=== PATIENT | female | born 1955 | race Caucasian/White ===

== ENCOUNTER 2021-03-18 01:21 | Emergency (ER) | payer MEDICARE ==
[2021-03-18] MEDS ORDERED: Ondansetron 4 MG Tab.DIS PO ONE (01:42)
[2021-03-18] MEDS ORDERED: Sodium Chloride 0.9% 1,000 ML IV ONE (01:42)
[2021-03-18] MEDS ORDERED: LORazepam 0.5 MG Tab PO ONE (02:59)
--- NOTE | 2021-03-18 03:06 | EDM.PDOC ---
ED HPI GENERAL MEDICAL PROBLEM - General Chief Complaint: General Stated Complaint: FEELS DEHYDRATED Time Seen by Provider: 03/18/21 02:00 - History of Present Illness INITIAL COMMENTS - FREE TEXT/NARRATIVE: Mouth feels very dry for a few hours. She became nauseated once and forced herself to vomit. She has not been sick. She did have a few beers last evening. - Related Data Allergies Allergy/AdvReac Type Severity Reaction Status Date / Time hydrocodone Allergy Itching Verified 03/18/21 02:14 oxycodone Allergy Itching Verified 03/18/21 02:14 Past Medical History HEENT History: Reports: Impaired Vision Cardiovascular History: Reports: Hypertension Respiratory History: Reports: Asthma Other Respiratory History: Rescue inhaler used 10 times in last 30 days [employer] History: Reports: - Past Surgical History HEENT Surgical History: Reports: None Cardiovascular Surgical History: Reports: None Respiratory Surgical History: Reports: None Social & Family History - Tobacco Use Tobacco Use Status *Q: Light Tobacco User Years of Tobacco use: 30 Packs/Tins Daily: 0 Used Tobacco, but Quit: No Second Hand Smoke Exposure: No - Caffeine Use Caffeine Use: Reports: Coffee Other Caffeine Use: 3 cups coffee daily - Alcohol Use Days Per Week of Alcohol Use: 1 Number of Drinks Per Day: 1 Total Drinks Per Week: 1 Date of Last Drink: 03/18/21 Time of Last Drink: 22:30 - Recreational Drug Use Recreational Drug Use: No ED ROS GENERAL - Review of Systems Review Of Systems: Comprehensive ROS is negative, except as noted in HPI. Endocrine: Reports: Other (very thristy.) ED EXAM, GENERAL - Physical Exam Exam: See Below GI/Abdominal: Other (discomfort in the ULQ. pt states this is not new.) Course - Vital Signs Last Recorded V/S: Last Vital Signs Temp 98.1 F 03/18/21 01:30 Pulse 92 03/18/21 01:30 Resp 20 03/18/21 01:30 BP 148/81 H 03/18/21 01:30 Pulse Ox 97 03/18/21 01:30 - Orders/Labs/Meds Labs: Laboratory Tests 03/18/21 03/18/21 03/18/21 Range/Units 02:00 02:10 02:15 WBC 8.2 (4.0-11.0) K/uL RBC 4.11 (3.80-5.80) M/uL Hgb 12.2 (11.5-16.5) g/dL Hct 35.4 L (37.0-47.0) % MCV 86 (76-96) fL MCH 29.7 (27.0-32.0) pg MCHC 34.5 (31.0-35.0) g/dL RDW 12.4 (11.0-16.0) % Plt Count 358 (150-500) K/uL MPV 9.4 (6.0-10.0) fL Neut % (Auto) 64.8 (45.0-70.0) % Lymph % (Auto) 22.4 (20.0-40.0) % [place] % (Auto) 7.8 (3.0-10.0) % Eos % (Auto) 4.3 (1.0-5.0) % Baso % (Auto) 0.7 H (0.0-0.5) % Neut # (Auto) 5.28 (2.00-7.50) K/uL Lymph # (Auto) 1.83 (1.50-4.00) K/uL [place] # (Auto) 0.64 (0.20-0.80) K/uL Eos # (Auto) 0.35 (0.04-0.40) K/uL Baso # (Auto) 0.06 (0.02-0.10) K/uL Sodium 121 L (136-145) mmol/L Potassium 3.8 (3.5-5.1) mmol/L Chloride 90 L (98-107) mmol/L Carbon Dioxide 25.7 (21.0-32.0) mmol/L Anion Gap 9.1 (5.0-15.0) mmol/L BUN 6 L (8-26) mg/dL Creatinine 0.61 (0.55-1.02) mg/dL Est Cr Clr Drug Dosing TNP Estimated GFR (MDRD) > 60 (>60) MLS/MIN BUN/Creatinine Ratio 9.8 (6-25) Glucose 106 H (74-100) mg/dL Calcium 7.9 L (8.5-10.1) mg/dL Total Bilirubin 0.2 (0.0-1.0) mg/dL AST 24 (15-37) U/L ALT 21 (12-78) U/L Alkaline Phosphatase 157 H (46-116) U/L Total Protein 7.6 (6.4-8.2) g/dL Albumin 3.9 (3.4-5.0) g/dL Globulin 3.7 (2.2-4.2) g/dL Albumin/Globulin Ratio 1.1 (0.8-2.0) TSH, Ultra Sensitive 1.553 (0.358-3.740) uIU/mL Urine Color Yellow Urine Appearance Clear (CLEAR) Urine pH 7.0 (5.0-8.0) Ur Specific [place] 1.020 (1.003-1.030) Urine Protein Negative (NEGATIVE) mg/dL Urine Glucose (UA) Negative (NEGATIVE) mg/dL Urine Ketones Negative (NEGATIVE) mg/dL Urine Occult Blood Trace-lysed H (NEGATIVE) Urine Nitrite Negative (NEGATIVE) Urine Bilirubin Negative (NEGATIVE) Urine Urobilinogen 0.2 (0.2-1.0) E.U./dL Ur Leukocyte Esterase Negative (NEGATIVE) Urine RBC 0-5 H /HPF Urine WBC Not Reportable Ur Epithelial Cells Few /HPF Urine Bacteria Few /HPF Meds: Medications Discontinued Medications Generic Name Dose Route Start Last Admin Trade Name Freq PRN Reason Stop Dose Admin Sodium Chloride 1,000 mls @ 999 mls/hr 03/18/21 01:42 03/18/21 01:50 Normal Saline IV 03/18/21 02:42 999 mls/hr .BOLUS ONE Administration Lorazepam 0.5 mg 03/18/21 02:59 Lorazepam 0.5 Mg Tab PO 03/18/21 03:00 ONETIME ONE Ondansetron HCl 4 mg 03/18/21 01:42 03/18/21 01:40 Ondansetron 4 Mg Tab.Dis PO 03/18/21 01:43 4 mg ONETIME ONE Administration - Re-Assessments/Exams Free Text/Narrative Re-Assessment/Exam: 03/18/21 03:04 Labs show her Na level is low at 121. Zofran was given x 1. Normal saline 1 liter was given. Pt still seems anxious. Denies alcohol abuse. Ativan 0.5 mg given x 1 dose. Encouraged to add salt to her food. Follow up with her PCP next week. Departure - Departure Time of Disposition: 03:00 Disposition: Home, Self-Care 01 Condition: Good Clinical Impression: Hyponatremia, Anxiety - Discharge Information *PRESCRIPTION DRUG MONITORING PROGRAM REVIEWED*: Not Applicable *COPY OF PRESCRIPTION DRUG MONITORING REPORT IN PATIENT LEA: Not Applicable Additional Instructions: Add salt to food. Limit alcohol use. Follow up with Primary provider next week. Sepsis Event Note (ED) - Evaluation Sepsis Screening Result: No Definite Risk - Focused Exam Vital Signs: Vital Signs Temp Pulse Resp BP Pulse Ox 03/18/21 01:30 98.1 F 92 20 148/81 H 97
== END 2021-03-18 03:04 | disposition home or self-care (01) ==
LOC: LB.ED 01:21 → EDBD 01:21 → LB.ED 03:04
DX: F41.9 Anxiety disorder, unspecified (principal); E87.1 Hypo-osmolality and hyponatremia; I10 Essential (primary) hypertension; J45.909 Unspecified asthma, uncomplicated; Z88.5 Allergy status to narcotic agent; Z72.0 Tobacco use
CPT/HCPCS: 36415; 80053; 81001; 84443; 85025; 99283; A9270; J7030